=== PATIENT | male | born 1980 | race Caucasian/White ===

== ENCOUNTER 2024-03-09 08:06 | Emergency (ER) | payer BC ==
[2024-03-09] MEDS: Sodium Chloride 0.9% 1,000 ML IV ONE (08:40)
[2024-03-09] MEDS: droPERidol 5 MG/2 ML SDV IVPUSH ONE (08:40)
== END 2024-03-09 09:10 | disposition home or self-care (01) ==
LOC: MW.ED 08:06
DX: M54.9 Dorsalgia, unspecified (principal); Z79.899 Other long term (current) drug therapy; Z75.8 Other problems related to medical facilities and other health care; W19.XXXA Unspecified fall, initial encounter
CPT/HCPCS: 99283